=== PATIENT | female | born 1975 | race Caucasian/White ===

== ENCOUNTER → 2023-06-04 | Outpatient (CLI) | payer SELFPAY ==
--- NOTE | 2023-06-04 08:10 | VDLE_ITS ---
Reason For Study: PHELBITIS THROMBOPHLEBITIS Procedure LEFT This is a venous duplex using B-mode, color GSV is normal. flow and spectral Doppler. CFV is compressible, spontaneous, phasic, Exam performed in department. competent, and demonstrates normal A preliminary report was called and/or faxed augmentation. to Tom @ [facility] @ FV is compressible, spontaneous, phasic, @8:45am. competent and demonstrates normal augmentation. POP V is compressible, spontaneous, phasic, competent and demonstrates normal augmentation. T/P Trunk is compressible. PTV is compressible. LT PerV is compressible. Thrombus filled varicosities noted on lateral mid to distal thigh. VL/Venous Duplex US, Unilateral Interpretation Summary Deep veins of the left lower extremity are patent and compressible segmentally. There is no evidence of left lower extremity deep vein thrombosis. Valvular competence appears intac t within the proximal deep venous system on the left . The left great saphenous vein appears patent a nd compressible segmentally. Acute superficial thrombophlebitis is noted in varicosities on the mid- and distal left lateral thigh. Ordering Physician: KRISSY HARDEN Referring Physician: OTD Performed By: Yelena Hennsesy, JOSÉ, RVT
== END | disposition home or self-care (01) ==
DX: I80.9 Phlebitis and thrombophlebitis of unspecified site (principal)
CPT/HCPCS: 93971